=== PATIENT | female | born 1955 | race Caucasian/White ===

== ENCOUNTER 2020-04-19 10:16 | Outpatient (CLI) | payer BC, SELFPAY ==
--- NOTE | ~2020-04-19 | US_ITS ---
EXAMINATION: US FNA w image guidance DATE: 04/19/2020 11:21 INDICATION: Left thyroid nodule with prior nondiagnostic biopsy. TECHNIQUE: A time-out was performed to verify the patient's name, date of , and procedure to be performed . The procedure and its benefits and risks were discussed with the patient. Risks specifically discus sed included bleeding and infection. The patient understood the risks and agreed to proceed. The neck was prepped and draped in the usual sterile manner. 3 mL 1% lidocaine was used for local anesthesia . 6 passes were made with a 25G needle into the lesion. Appropriate needle location was documented with continuous sonographic guidance. The specimens were passed to the nanotechnologist in the room. A sterile bandage was applied. There were no immediate complications. FINDINGS: Grayscale ultrasound images demonstrate biopsy needles advanced into a 1.8 x 1.4 x 1.5 cm predominant ly solid hypoechoic TI RADS 4 nodule with shadowing partial rim calcification in the left thyroid. IMPRESSION: 1. Successful ultrasound-guided fine needle aspiration of a 1.8 cm TI RADS 4 left thyroid nodule. Reviewed, dictated and finalized at location A. IMPRESSION: 1. Successful ultrasound-guided fine needle aspiration of a 1.8 cm TI RADS 4 l eft thyroid nodule.
== END 2020-04-19 10:17 | disposition home or self-care (01) ==
LOC: ANHIMG 10:30
PROVIDERS: PCP Nurse Practitioner Family; Visit Provider Otolaryngology
DX: E04.1 Nontoxic single thyroid nodule (principal)
CPT/HCPCS: 10005; 88173; 88305

== ENCOUNTER 2024-06-15 07:28 | Day surgery (SDC) | payer MEDICARE, SELFPAY ==
[2024-04-25 07:28] VITALS: BMI 23.9
[2024-05-30 12:37] VITALS: BMI 24.9
--- NOTE | 2024-06-15 06:55 | P.PNAN_ITS ---
Anes - Initial Pre Proc Eval Procedure: Operation Date: 06/15/24 10:00 Proposed Procedures p Diagnostic Colonoscopy - Skyler Lara MD Date/Time: 06/15/24 06:55 Surgeon: Skyler Lara MD Pre Op Diagnosis: Positive Cologuard test Patient Data Age: 69 Gender: F Height: 1.6 m Weight: 63.8 kg Allergies Allergy/AdvReac Type Severity Reaction Status Date / Time No Known Allergies Allergy Verified 06/15/24 08:38 Home Medications Medication Instructions Recorded Confirmed Type alprazolam 0.5 mg tablet 0.5 mg PO DAILY PRN Sleep 04/10/20 06/15/24 History ascorbate calcium (vitamin C) 500 500 mg PO DAILY 04/10/20 06/15/24 History mg tablet aspirin 81 mg tablet,delayed 81 mg PO DAILY 04/10/20 06/15/24 History release (Adult Aspirin Regimen) fluticasone propionate 50 1 spray intranasal DAILY PRN 04/10/20 06/15/24 History mcg/actuation nasal Allergy Symptoms spray,suspension (Allergy Relief (fluticasone)) calcium 600 mg (as 1 tablet PO DAILY 05/30/24 06/15/24 History carbonate)-vitamin D3 5 mcg (200 unit) tablet estradiol 0.01% (0.1 mg/gram) 1 applic vaginal WEEKLY 05/30/24 06/15/24 History vaginal cream ezetimibe 10 mg tablet 10 mg PO DAILY 05/30/24 06/15/24 History fexofenadine 180 mg tablet 180 mg PO DAILY 05/30/24 06/15/24 History (Chrissy Allergy) milk thistle seed extract 140 1 cap PO DAILY 05/30/24 06/15/24 History mg-milk thistle 500 mg capsule rosuvastatin 40 mg tablet 40 mg PO DAILY 05/30/24 06/15/24 History turmeric 400 mg capsule 400 mg PO DAILY 05/30/24 06/15/24 History zinc 50 mg tablet 50 mg PO DAILY 05/30/24 06/15/24 History eciszafzrgdfs-IP-fsnbbkaygmbka-guaifen 2 tablet PO Q4-6H PRN Cold Symptoms 06/15/24 06/15/24 History 5 mg-10 mg-325 mg-200 mg tablet (Tylenol Cold and Flu Severe) Patient hx anesthesia problems: none Family hx anesthesia problems: none Results Review: All pre-operative results and documents have been reviewed as part of the pre-operative evaluation. [facility] Past Medical History Medical History History of hypercholesterolemia Osteopenia Surgical History Surgical History History of breast biopsy History of tonsillectomy Social History Social History Smoking packs per day: 1.5 Smoking cigarettes per day: 30.0 Years smoked: 35 Smoking pack-years: 52.50 Smoking status: Former smoker Tobacco type: cigarettes Second hand tobacco smoke exposure: No Alcohol intake: current Drinks per week: 6 Alcohol use details: wine Substance use type: does not use Living arrangements: with family Spiritual care concerns: No Anes - Eval Final PreProcedure Day of Procedure 06/15/24 06:55 Patient weight: normal Heart: regular rate and rhythm Lungs: clear to auscultation and normal air movement Airway: Mallampati scale class II Neurological: alert and oriented Last oral intake: >/= 8 hours ASA classification: II Emergent: no Anesthetic plan: proceed Anesthesia type and monitoring: general GIVS and standard monitoring Results Review: All pre-operative results and documents have been reviewed as part of the pre- operative evaluation. Informed Consent: The patient's anesthetic plan and its attendant risks and benefits were discussed with the patient/family/POA. Questions were solicited and answers provided to the satisfaction of the patient/family/POA.
[2024-06-15 08:40] VITALS: BP 151/82; PULSE 77; RESP 15; TEMP 36.8; O2SAT 100
[2024-06-15] MEDS: LACTATED RINGERS 1,000 ML 150 ML IV CONT (08:45)
--- NOTE | 2024-06-15 09:54 | PM.HPGS ---
History of Present Illness History of Present Illness Consent: Risks, benefits, and alternatives have been discussed and questions answered. Patient agrees to proceed with procedure. Chief complaint: Positive Cologuard test Narrative: Melany Roberts is a 69 year old female presents for colonoscopy. Patient recently found to have positive Cologuard test. Patient's current weight appetite and bowel movements are normal. She denies abdominal pain. Patient has had no bleeding. Family history is negative. Review of Systems Review of Systems: All systems reviewed & are unremarkable except as noted in HPI and below PMFSH Past Medical History Medical History History of hypercholesterolemia Osteopenia Surgical History Surgical History History of breast biopsy History of tonsillectomy Social History Social History Smoking packs per day: 1.5 Smoking cigarettes per day: 30.0 Years smoked: 35 Smoking pack-years: 52.50 Smoking status: Former smoker Tobacco type: cigarettes Second hand tobacco smoke exposure: No Alcohol intake: current Drinks per week: 6 Alcohol use details: wine Substance use type: does not use Living arrangements: with family Spiritual care concerns: No Meds Home Medications and Allergies Home Medications Medication Instructions Recorded Confirmed Type alprazolam 0.5 mg tablet 0.5 mg PO DAILY PRN Sleep 04/10/20 06/15/24 History ascorbate calcium (vitamin C) 500 500 mg PO DAILY 04/10/20 06/15/24 History mg tablet aspirin 81 mg tablet,delayed 81 mg PO DAILY 04/10/20 06/15/24 History release (Adult Aspirin Regimen) fluticasone propionate 50 1 spray intranasal DAILY PRN 04/10/20 06/15/24 History mcg/actuation nasal Allergy Symptoms spray,suspension (Allergy Relief (fluticasone)) calcium 600 mg (as 1 tablet PO DAILY 05/30/24 06/15/24 History carbonate)-vitamin D3 5 mcg (200 unit) tablet estradiol 0.01% (0.1 mg/gram) 1 applic vaginal WEEKLY 05/30/24 06/15/24 History vaginal cream ezetimibe 10 mg tablet 10 mg PO DAILY 05/30/24 06/15/24 History fexofenadine 180 mg tablet 180 mg PO DAILY 05/30/24 06/15/24 History (Chrissy Allergy) milk thistle seed extract 140 1 cap PO DAILY 05/30/24 06/15/24 History mg-milk thistle 500 mg capsule rosuvastatin 40 mg tablet 40 mg PO DAILY 05/30/24 06/15/24 History turmeric 400 mg capsule 400 mg PO DAILY 05/30/24 06/15/24 History zinc 50 mg tablet 50 mg PO DAILY 05/30/24 06/15/24 History ppkeicwkgacpx-KS-eplyufsyoasxf-guaifen 2 tablet PO Q4-6H PRN Cold Symptoms 06/15/24 06/15/24 History 5 mg-10 mg-325 mg-200 mg tablet (Tylenol Cold and Flu Severe) Allergies Allergy/AdvReac Type Severity Reaction Status Date / Time No Known Allergies Allergy Verified 06/15/24 08:38 Vital Signs Vital Signs - 24 hr 06/15/24 08:40 Temperature 98.3 F Pulse Rate 77 Respiratory Rate 15 Blood Pressure 151/82 H Pulse Oximetry 100 Oxygen Delivery Room Air Exam Narrative: Physical exam reveals patient to be alert. Vital signs stable. HEENT exam is unremarkable. Patient is anicteric. Lungs are clear to auscultation and to percussion. Heart is without murmur or extra sounds. Abdomen sounds are present soft nontender with no organomegaly. Digital external rectal exam normal. Assessment and Plan Assessment and plan (1) Encounter for colorectal cancer screening using Cologuard test: Code(s): Z12.11 - Encounter for screening for malignant neoplasm of colon; Z12.12 - Encounter for screening for malignant neoplasm of rectum Status: Acute Assessment and Plan: Patient found to have positive Cologuard test. Plan for screening colonoscopy at this time.
[2024-06-15 10:55] VITALS: BP 142/75; PULSE 94; RESP 18; O2SAT 99
[2024-06-15 11:05] VITALS: BP 139/75; PULSE 90; RESP 18; O2SAT 100
[2024-06-15 11:15] VITALS: BP 140/74; PULSE 94; RESP 20; O2SAT 100
--- NOTE | 2024-06-15 12:47 | WPDANESPN ---
Anes - Prog Note Post-Op Date/Time: 06/15/24 12:47 Cardiovascular status: normal Respiratory status: normal Airway patency: baseline Mental status: baseline Post-Op hydration status: normal Vital Signs: Last Vital Signs Temp 36.8 C 06/15/24 08:40 Pulse 94 06/15/24 11:15 Resp 20 06/15/24 11:15 BP 140/74 06/15/24 11:15 Pulse Ox 100 06/15/24 11:15 O2 Del Method Room Air 06/15/24 11:15 Pain Score (VAS): 0 I/O: Intake & Output 06/14/24 06/15/24 06/15/24 23:59 07:59 15:59 Intake Total 450 Balance 450 Post-procedural complaints: none Patient Feedback: Patient satisfied with anesthetic care. Other Findings: Patient vital signs back to baseline. Patient denies nausea and vomiting. Patient's pain under control. Patient OK for discharge.
== END 2024-06-15 11:28 | disposition home or self-care (01) ==
PROVIDERS: PCP Physician Assistant; Visit Provider Internal Medicine Gastroenterology
PROC: 0DJD8ZZ Inspection of Lower Intestinal Tract, Via Natural or Artificial Opening Endoscopic (ICD-10-PCS; CPT 45378; principal; 2024-06-15 10:00)
DX: R19.5 Other fecal abnormalities (principal); D12.3 Benign neoplasm of transverse colon; K57.30 Diverticulosis of large intestine without perforation or abscess without bleeding; K64.8 Other hemorrhoids
CPT/HCPCS: 45385

== ENCOUNTER 2024-06-15 08:46 | Outpatient (NON) | payer MEDICARE, SELFPAY | END 2024-06-15 08:47 | disposition home or self-care (01) | LOC: ANHLAB 06-16 08:48 | PROVIDERS: PCP Physician Assistant; Visit Provider Internal Medicine Gastroenterology | DX: Z12.11 Encounter for screening for malignant neoplasm of colon (principal); Z12.12 Encounter for screening for malignant neoplasm of rectum | CPT/HCPCS: 88305 ==

== ENCOUNTER 2024-07-14 10:30 | Outpatient (CLI) | payer MEDICARE, SELFPAY ==
--- NOTE | ~2024-07-14 | US_ITS ---
EXAMINATION: US thyroid DATE: 07/14/2024 10:47 INDICATION: Thyroid nodules TECHNIQUE: Multiple ultrasound images of the thyroid were obtained. COMPARISON: 03/20/2020 and 05/05/2019. Benign follicular cyst (left thyroid, 11mm) by FNA on 04/19/2020 FINDINGS: The right thyroid lobe measures 4.6 x 1.3 x 1.8 cm. Within the mid pole of the right lobe of the thyroid gland is a 6 x 4 x 7 mm nodule: Composition - solid, or almost completely solid (2) Echogenicity - isoechoic (1) Shape - wider than tall Margin - smooth Echogenic foci - none. = TR3 mildly suspicious. Greater than 1.5 cm: Follow-up Greater than 2.5 cm: FNA The left thyroid lobe measures 3.7 x 0.8 x 1.8 cm. Redemonstration of complex nodule representing a benign follicular cyst on previous pathology. This f ocus measures 11 x 11 x 14 mm. The isthmus measures 3.4mm in anterior to posterior dimension. There is otherwise normal echotexture and echogenicity throughout the remainder of the thyroid gland. No additional discrete nodules identified. Normal vascular flow is present. IMPRESSION: TR3 nodule in the right lobe of the thyroid gland measuring 7mm in greatest dimension. This nodule is mildly suspicious and by size criteria, no FNA is recommended Follow-up may be performed. Reviewed, dictated and finalized at location A. WARE QUALITY SPECIALIST IMPRESSION: TR3 nodule in the right lobe of the thyroid gland measuring 7mm in greatest dim ension. This nodule is mildly suspicious and by size criteria, no FNA is recommended Follow-up may be performed.
== END 2024-07-14 10:31 | disposition home or self-care (01) ==
LOC: MICIMG 10:31
PROVIDERS: PCP Physician Assistant; Visit Provider Otolaryngology
DX: E04.2 Nontoxic multinodular goiter (principal)
CPT/HCPCS: 76536

== ENCOUNTER 2024-09-01 09:29 | Outpatient (CLI) | payer MEDICARE, SELFPAY ==
--- NOTE | ~2024-09-01 | US_ITS ---
Limited Abdominal Sonogram: Real-time sonographic imaging of the right upper quadrant was performed. Clinical History: Elevated liver enzymes Findings: The liver appears normal with no evidence of mass lesion or bile duct dilatation. Main por roland vein demonstrates normal direction of flow. The gallbladder is well distended, and appears normal with no evidence of gallstone or wall thickening. The common bile duct measures 4 mm. The visualize d pancreas, aorta, and IVC are unremarkable. Impression: No significant abnormality seen. Reviewed, dictated and finalized at location . LENE PLANT OPERATOR Impression: No significant abnormality seen.
== END 2024-09-01 09:30 | disposition home or self-care (01) ==
LOC: MICIMG 09:30
PROVIDERS: PCP Physician Assistant; Visit Provider Physician Assistant
DX: R74.01 Elevation of levels of liver transaminase levels (principal)
CPT/HCPCS: 76705

== ENCOUNTER 2025-01-23 14:16 | Outpatient (CLI) | payer MEDICARE, SELFPAY ==
--- NOTE | ~2025-01-23 | MM_ITS ---
EXAMINATION: MM screening handy BI w rosanne HISTORY: Screening TECHNIQUE: Craniocaudal and mediolateral oblique 3-D tomosynthesis images were obtained and synthetic 2-D images were generated. CAD analysis was submitted and interpreted. COMPARISON: No prior mammogram is available for comparison at this institution. BREAST PARENCHYMAL COMPOSITION: Not dense: There are scattered areas of fibroglandular density. FINDINGS: There is no evidence of suspicious mass, calcification, or architectural distortion to sugg est malignancy in either breast. There has been no suspicious interval change. IMPRESSION: 1. No mammographic evidence of malignancy. 2. Recommend routine screening mammography in one year. BI-RADS Category 1: Negative Reviewed, dictated and finalized at location B.
--- NOTE | ~2025-01-23 | DEXA_ITS ---
Bone Density Report Name: FANTA HENNESSY Age: 69 Sex: Female Ethnicity: White Date of : 1955 Indication: postmenopausal; screening for osteoporosis; height loss; Referring Provider: JOLIE, ILIR Study: Bone densitometry was performed. Exam Date: January 23, 2025 Accession number: [id number] Bone Density: Region BMD T-score Z-score Classification AP Spine(L1, L2, L3) 0.956 -0.6 1.3 Normal Femoral Neck (Left) 0.595 -2.3 -0.6 Osteopenia Total Hip (Left) 0.894 -0.4 1.0 Normal Femoral Neck (Right) 0.586 -2.4 -0.7 Osteopenia Total Hip (Right) 0.871 -0.6 0.8 Normal Total Hip Mean 0.883 -0.5 0.9 Normal World Health Organization criteria for BMD impression classify patients as: Normal (T-score at or above -1.0), Osteopenia (T-score between -1.0 and -2.5), or Osteoporosis (T-score at or below -2.5). 10-year Fracture Risk(1): Major Osteoporotic Fracture 13% Hip Fracture 2.7% Reported Risk Factors: [place] (), Neck BMD=0.586, BMI=24.1 (1) FRAX(R) Version 3.08. Fracture probability calculated for an untreated patient. Fracture probability may be lower if the patient has received treatment. Clinical Information Provided by Patient: Has used the following medications: Vitamin D, Calcium Patient maximum height was 63 Menopause Age: 52 Drinks caffeinated beverages Onset of menses at age 16 Number of children 1 Impression: The patient has low bone mass, based on the Right Femoral Neck T-score. The patient has an estimated ten-year risk of hip fracture of 2.7% and an estimated ten-year risk of major fracture of 13%, based on the WHO FRAX algorithm. Discussion: BONE DENSITY IS LOW AT ONE OR MORE SKELETAL SITES. This patient's lowest T-score is low at one or more skeletal sites. It meets the World Health Organization's (WHO) criteria for ?low bone mass? (T-score between -1.0 and -2.5). The patient's 10-year risk of fracture as calculated by FRAX is less than the threshold where pharmacological therapy is recommended by the National Osteoporosis Foundation (NOF). However, all treatment decisions require clinical judgment and consideration of individual patient factors, including patient preferences, comorbidities, previous drug use, risk factors not captured in the FRAX model (e.g., frailty, falls, vitamin D deficiency, increased bone turnover, interval significant decline in bone density) and possible under or overestimation of fracture risk by FRAX. The patient should follow a healthful lifestyle (good nutrition with adequate calcium and vitamin D, and appropriate weight-bearing exercise). Follow-Up: Consider repeating this study in 2 to 3 years to reassess this patient's status, or sooner if there is some new clinical indication. Reported by: GEETA on 01/23/2025 2:41:00 PM. Reviewed, dictated and finalized at location A.
== END 2025-01-23 14:17 | disposition home or self-care (01) ==
PROVIDERS: PCP Physician Assistant; Visit Provider Physician Assistant
DX: M85.852 Other specified disorders of bone density and structure, left thigh (principal); M85.851 Other specified disorders of bone density and structure, right thigh; Z78.0 Asymptomatic menopausal state; Z12.31 Encounter for screening mammogram for malignant neoplasm of breast
CPT/HCPCS: 77063; 77067; 77080